=== PATIENT | female | born 1960 | race Asian ===

== ENCOUNTER 2024-11-26 08:08 | Emergency (ER) | payer BC ==
[~2024-11-26] VITALS: Ht 152.4 cm; Wt 83.5 kg
[2024-11-26 08:15] VITALS: TEMP 97.8
[2024-11-26 08:21] VITALS: PULSE 64; RESP 16
[2024-11-26 09:24] VITALS: PULSE 68; RESP 18; TEMP 97.5; O2SAT 100
== END 2024-11-26 09:25 | disposition home or self-care (01) ==
LOC: ER 08:17
DX: M25.561 Pain in right knee (principal); I10 Essential (primary) hypertension; E78.5 Hyperlipidemia, unspecified
CPT/HCPCS: 99283